=== PATIENT | female | born 1940 | race Caucasian/White ===

== ENCOUNTER 2017-08-10 13:18 | Inpatient (IN) | payer MEDICARE ==
[~2017-08-10] VITALS: Ht 154.9 cm; Wt 61.4 kg
[~2017-08-10 13:18] MED LIST: ATOR20TA9 PO; BACL-19 PO; CITA20TA9 PO; CLOP75TA52 PO; DULO20CA45 PO; GABA-826 PO; NEO/5DRO2 LEFTEYE
[2017-08-10] MEDS ORDERED: SODIUM CHLORIDE FLUSH 10ML SYR IVF ONE ×2 (13:30→16:00)
[2017-08-10] MEDS ORDERED: MECLIZINE CHEWABLE 25 MG TAB PO ONE (13:30)
[2017-08-10] MEDS ORDERED: BACL20TA PO (13:42)
[2017-08-10] MEDS ORDERED: ASCO10004 PO (13:42)
[2017-08-10] MEDS ORDERED: CHOL100012 PO (13:42)
[2017-08-10] MEDS ORDERED: SENN-87 PO (13:42)
[2017-08-10] MEDS ORDERED: OMEG-14 PO (13:42)
[2017-08-10] MEDS ORDERED: GABA300C10 PO (13:42)
[2017-08-10] MEDS ORDERED: ONDA4TAB7 PO (13:42)
[2017-08-10] MEDS ORDERED: ACET325T26 PO (13:42)
[2017-08-10] MEDS ORDERED: MULT-658 PO (13:42)
[2017-08-10] MEDS ORDERED: MECLIZINE CHEWABLE 25 MG TAB ONE (13:50)
[2017-08-10 14:00] LABS: HEMATOCRIT 42.6 % (34.6-47.8); HEMOGLOBIN 14.5 g/dL (11.7-16.4); WHITE BLOOD COUNT 6.3 x10^3/uL (3.4-10)
[2017-08-10 14:06] LABS: ASPARTATE AMINO TRANSFERASE 18 U/L (15-37); BLOOD UREA NITROGEN 12 mg/dL (7-18)
[2017-08-10 14:11] LABS: IS PT STATUS REG ER OR PRE ER? YES
[2017-08-10] MEDS ORDERED: ONDANSETRON 4 MG TABLET PO PRN (17:00)
[2017-08-10] MEDS ORDERED: LORazepam 0.5MG TABLET PO PRN (17:30)
[2017-08-10] MEDS ORDERED: HYDROcodone/APAP 5/325 TABLET PO PRN (17:30)
[2017-08-10] MEDS: METHOCARBAMOL 500 MG TABLET PO SCH ×3 (17:30→22:22)
[2017-08-10] MEDS ORDERED: POLYETHYLENE GLYCOL 17 GM PACKET PO PRN (17:30)
[2017-08-10] MEDS ORDERED: BISACODYL 10 MG SUPP PR PRN (17:30)
[2017-08-10] MEDS ORDERED: KETOROLAC 30 MG/1 ML IVPush ONE (17:30)
[2017-08-10] MEDS ORDERED: ONDANSETRON 2MG/ML, 2ML IVPush PRN (17:30)
[2017-08-10] MEDS ORDERED: MECLIZINE 12.5 MG TABLET PO PRN (17:30)
[2017-08-10] MEDS ORDERED: morphine SULFATE 10 MG/ML, 1ML IVPush PRN (17:30)
[2017-08-10] MEDS ORDERED: GADOBUTROL 7.5 MMOL/7.5 ML PFS ONE (18:31)
[2017-08-10 20:00] LABS: IS PT STATUS REG ER OR PRE ER? NO
[2017-08-10] MEDS: ACETAMINOPHEN 325 MG TABLET PO SCH ×3 (21:00→22:22)
[2017-08-10] MEDS: SENNOSIDES 8.6 MG TABLET PO SCH (21:00)
[2017-08-10] MEDS ORDERED: DULOXETINE 20 MG CAPSULE.DR PO SCH (21:00)
[2017-08-10 22:00] VITALS: BP_SYST 109; BP_SYST 114; BP_SYST 127; BP_DIAS 66; BP_DIAS 74; BP_DIAS 78
[2017-08-10] MEDS: SODIUM CHLORIDE 0.9% 1,000 ML IV SCH (22:07)
[2017-08-10] MEDS: ENOXAPARIN 40 MG/0.4 ML SQ SCH (22:08)
[2017-08-10] MEDS: ATORVASTATIN 20 MG TABLET PO SCH (22:09)
[2017-08-11 00:58] VITALS: BP 112/69
[2017-08-11] MEDS: ACETAMINOPHEN 325 MG TABLET PO SCH ×6 (01:01→20:46)
[2017-08-11 05:58] LABS: HEMATOCRIT 39.3 % (34.6-47.8); HEMOGLOBIN 13.4 g/dL (11.7-16.4); WHITE BLOOD COUNT 5.4 x10^3/uL (3.4-10)
[2017-08-11] MEDS: METHOCARBAMOL 500 MG TABLET PO SCH ×4 (06:11→20:46)
[2017-08-11 06:37] LABS: BLOOD UREA NITROGEN 17 mg/dL (7-18)
[2017-08-11 07:13] VITALS: BP 129/71
[2017-08-11 07:14] VITALS: BP 148/84
[2017-08-11 07:23] VITALS: BP 131/83
[2017-08-11] MEDS: SENNOSIDES 8.6 MG TABLET PO SCH ×2 (09:00→20:45)
[2017-08-11] MEDS: MULTIVITAMIN 1 TABLET PO SCH (09:23)
[2017-08-11] MEDS: CLOPIDOGREL 75 MG TABLET PO SCH (09:23)
[2017-08-11] MEDS: SODIUM CHLORIDE 0.9% 1,000 ML IV SCH ×2 (09:23→18:00)
[2017-08-11] MEDS: OMEGA-3/FISH OIL CAPSULE PO SCH (09:23)
[2017-08-11] MEDS: GABAPENTIN 300 MG CAPSULE PO SCH (09:23)
[2017-08-11] MEDS: CHOLECALCIFEROL 1,000 UNIT TABLET PO SCH (09:23)
[2017-08-11] MEDS ORDERED: ASPIRIN 325 MG TABLET PO ONE (09:30)
[2017-08-11 11:06] LABS: IS PT STATUS REG ER OR PRE ER? NO
[2017-08-11 14:00] VITALS: BP_SYST 104; BP_SYST 112; BP_SYST 114; BP_DIAS 66; BP_DIAS 70
[2017-08-11] MEDS ORDERED: NITROGLYCERIN 0.4 MG/SPRAY SL PRN (16:00)
[2017-08-11] MEDS: MECLIZINE 12.5 MG TABLET PO SCH ×2 (16:00→20:44)
[2017-08-11] MEDS ORDERED: NITROGLYCERIN 0.4 MG BOTTLE (25 TABS) SL PRN (16:00)
[2017-08-11 18:55] LABS: IS PT STATUS REG ER OR PRE ER? NO
[2017-08-11] MEDS: FAMOTIDINE 20 MG TABLET PO SCH (20:44)
[2017-08-11] MEDS: ATORVASTATIN 20 MG TABLET PO SCH (20:45)
[2017-08-11] MEDS: DULOXETINE 20 MG CAPSULE.DR PO SCH (20:45)
[2017-08-11] MEDS: ENOXAPARIN 40 MG/0.4 ML SQ SCH (20:46)
[2017-08-11 21:08] VITALS: BP 118/75
[2017-08-12] MEDS: SODIUM CHLORIDE 0.9% 1,000 ML IV SCH ×2 (00:35→17:33)
[2017-08-12] MEDS: ACETAMINOPHEN 325 MG TABLET PO SCH ×6 (01:00→21:00)
[2017-08-12] MEDS ORDERED: HALOPERIDOL 5 MG/ML ONE ×2 (02:48→03:48)
[2017-08-12] MEDS ORDERED: HALOPERIDOL 5 MG/ML IV ONE (05:00)
[2017-08-12] MEDS: ASPIRIN 81 MG TABLET EC PO SCH (05:38)
[2017-08-12] MEDS: METHOCARBAMOL 500 MG TABLET PO SCH ×4 (05:38→23:13)
[2017-08-12] MEDS ORDERED: OXYMETAZOLINE NASAL SPRAY 0.05%, 15ML NAS ONE (06:30)
[2017-08-12] MEDS: GABAPENTIN 300 MG CAPSULE PO SCH (08:01)
[2017-08-12] MEDS: OMEGA-3/FISH OIL CAPSULE PO SCH (08:01)
[2017-08-12] MEDS: MECLIZINE 12.5 MG TABLET PO SCH (08:01)
[2017-08-12] MEDS: MULTIVITAMIN 1 TABLET PO SCH (08:01)
[2017-08-12] MEDS: CLOPIDOGREL 75 MG TABLET PO SCH (08:02)
[2017-08-12] MEDS: CHOLECALCIFEROL 1,000 UNIT TABLET PO SCH (08:02)
[2017-08-12 08:49] VITALS: BP 130/75
[2017-08-12] MEDS: SENNOSIDES 8.6 MG TABLET PO SCH ×2 (09:00→21:00)
[2017-08-12] MEDS ORDERED: MECLIZINE 12.5 MG TABLET PO PRN (12:30)
[2017-08-12 13:53] VITALS: BP 164/84
[2017-08-12 20:00] VITALS: BP 137/76
[2017-08-12] MEDS: FAMOTIDINE 20 MG TABLET PO SCH (23:13)
[2017-08-12] MEDS: ATORVASTATIN 20 MG TABLET PO SCH (23:13)
[2017-08-12] MEDS: DULOXETINE 20 MG CAPSULE.DR PO SCH (23:13)
[2017-08-12] MEDS: ENOXAPARIN 40 MG/0.4 ML SQ SCH (23:14)
[2017-08-13] MEDS: ACETAMINOPHEN 325 MG TABLET PO SCH ×2 (01:00→05:00)
[2017-08-13 02:00] VITALS: BP 116/72
[2017-08-13] MEDS: METHOCARBAMOL 500 MG TABLET PO SCH ×4 (07:00→19:14)
[2017-08-13 07:35] VITALS: BP 122/69
[2017-08-13] MEDS ORDERED: REGADENOSON 0.4 MG/5 ML SYRINGE ONE (08:36)
[2017-08-13] MEDS ORDERED: ACETAMINOPHEN 325 MG TABLET PO PRN ×2 (09:00→18:30)
[2017-08-13] MEDS: SENNOSIDES 8.6 MG TABLET PO SCH ×2 (09:00→21:00)
[2017-08-13] MEDS: SODIUM CHLORIDE 0.9% 1,000 ML IV SCH ×2 (11:06→21:11)
[2017-08-13] MEDS: CLOPIDOGREL 75 MG TABLET PO SCH (11:06)
[2017-08-13] MEDS: GABAPENTIN 300 MG CAPSULE PO SCH (11:06)
[2017-08-13] MEDS: ASPIRIN 81 MG TABLET EC PO SCH (11:06)
[2017-08-13] MEDS: OMEGA-3/FISH OIL CAPSULE PO SCH (11:06)
[2017-08-13] MEDS: MULTIVITAMIN 1 TABLET PO SCH (11:06)
[2017-08-13] MEDS: CHOLECALCIFEROL 1,000 UNIT TABLET PO SCH (11:07)
[2017-08-13 15:03] VITALS: BP 132/75
[2017-08-13] MEDS ORDERED: BISACODYL 10 MG SUPP PR PRN (18:30)
[2017-08-13] MEDS ORDERED: POLYETHYLENE GLYCOL 17 GM PACKET PO PRN (18:30)
[2017-08-13] MEDS ORDERED: NITROGLYCERIN 0.4 MG/SPRAY SL PRN (18:30)
[2017-08-13] MEDS ORDERED: ONDANSETRON 2MG/ML, 2ML IVPush PRN (18:30)
[2017-08-13] MEDS ORDERED: NITROGLYCERIN 0.4 MG BOTTLE (25 TABS) SL PRN (18:30)
[2017-08-13 19:14] VITALS: BP 119/74
[2017-08-13] MEDS: FAMOTIDINE 20 MG TABLET PO SCH (21:11)
[2017-08-13] MEDS: ATORVASTATIN 20 MG TABLET PO SCH (21:11)
[2017-08-13] MEDS: DULOXETINE 20 MG CAPSULE.DR PO SCH (21:11)
[2017-08-13] MEDS: ENOXAPARIN 40 MG/0.4 ML SQ SCH (22:09)
[2017-08-14 01:43] VITALS: BP 157/81
[2017-08-14] MEDS: ASPIRIN 81 MG TABLET EC PO SCH (05:44)
[2017-08-14] MEDS: METHOCARBAMOL 500 MG TABLET PO SCH ×4 (05:44→20:06)
[2017-08-14] MEDS: SODIUM CHLORIDE 0.9% 1,000 ML IV SCH (05:47)
[2017-08-14 08:00] VITALS: BP 149/81
[2017-08-14] MEDS: SENNOSIDES 8.6 MG TABLET PO SCH ×2 (09:00→20:07)
[2017-08-14] MEDS: OMEGA-3/FISH OIL CAPSULE PO SCH (10:25)
[2017-08-14] MEDS: GABAPENTIN 300 MG CAPSULE PO SCH (10:25)
[2017-08-14] MEDS: CHOLECALCIFEROL 1,000 UNIT TABLET PO SCH (10:25)
[2017-08-14] MEDS: CLOPIDOGREL 75 MG TABLET PO SCH (10:25)
[2017-08-14] MEDS: MULTIVITAMIN 1 TABLET PO SCH (10:25)
[2017-08-14 12:52] VITALS: BP 121/69
[2017-08-14] MEDS: FAMOTIDINE 20 MG TABLET PO SCH (20:06)
[2017-08-14] MEDS: ATORVASTATIN 20 MG TABLET PO SCH (20:06)
[2017-08-14] MEDS: DULOXETINE 20 MG CAPSULE.DR PO SCH (20:06)
[2017-08-14] MEDS: ENOXAPARIN 40 MG/0.4 ML SQ SCH (20:06)
[2017-08-14 20:19] VITALS: BP 130/67
[2017-08-15 00:30] VITALS: BP 137/81
[2017-08-15] MEDS: METHOCARBAMOL 500 MG TABLET PO SCH ×2 (05:06→11:01)
[2017-08-15] MEDS: ASPIRIN 81 MG TABLET EC PO SCH (05:06)
[2017-08-15 08:46] VITALS: BP 112/74
[2017-08-15] MEDS: CLOPIDOGREL 75 MG TABLET PO SCH (09:27)
[2017-08-15] MEDS: GABAPENTIN 300 MG CAPSULE PO SCH (09:27)
[2017-08-15] MEDS: CHOLECALCIFEROL 1,000 UNIT TABLET PO SCH (09:27)
[2017-08-15] MEDS: OMEGA-3/FISH OIL CAPSULE PO SCH (09:27)
[2017-08-15] MEDS: MULTIVITAMIN 1 TABLET PO SCH (09:27)
[2017-08-15] MEDS: SENNOSIDES 8.6 MG TABLET PO SCH (09:27)
[2017-08-15 12:38] VITALS: BP 106/70
[2017-08-15] MEDS ORDERED: DULO20CA17 PO (13:07)
[2017-08-15] MEDS ORDERED: FAMO20TA7 PO (13:07)
[2017-08-15] MEDS ORDERED: METH500T7 PO (13:08)
== END 2017-08-15 15:56 | DRG 551 ==
LOC: ED 15:55 → EDIP 15:56 → ED 16:27 → 4EST 18:18 → 4WST 08-12 04:40
PROVIDERS: ADMIT Hospitalist; ATTEND Hospitalist
DX: S16.1XXA Strain of muscle, fascia and tendon at neck level, initial encounter (principal); G93.40 Encephalopathy, unspecified; E86.0 Dehydration; G90.9 Disorder of the autonomic nervous system, unspecified; F03.90 Unspecified dementia, unspecified severity, without behavioral disturbance, psychotic disturbance, mood disturbance, and anxiety; K21.9 Gastro-esophageal reflux disease without esophagitis; G89.29 Other chronic pain; W18.30XA Fall on same level, unspecified, initial encounter; F32.9 Major depressive disorder, single episode, unspecified; I10 Essential (primary) hypertension; E78.5 Hyperlipidemia, unspecified; F17.210 Nicotine dependence, cigarettes, uncomplicated; G47.00 Insomnia, unspecified; R04.0 Epistaxis; Z66 Do not resuscitate; F41.9 Anxiety disorder, unspecified; Z82.3 Family history of stroke; Z82.49 Family history of ischemic heart disease and other diseases of the circulatory system; Z86.73 Personal history of transient ischemic attack (TIA), and cerebral infarction without residual deficits; Z98.42 Cataract extraction status, left eye; Y93.89 Activity, other specified; Y92.89 Other specified places as the place of occurrence of the external cause; Z87.440 Personal history of urinary (tract) infections
CPT/HCPCS: 36415; 70450; 70553; 71010; 78452; 80048; 80053; 80061; 81001; 82140; 82607; 82746; 83735; 84443; 84484; 85025; 85610; 85651; 85730; 87086; 93005; 93017; 93306; 99285; A9585; J1650; J1885; J2785; 92523-GN; A9502; C9898; J1630; J7030

== ENCOUNTER 2018-04-28 17:09 | Emergency (ER) | payer MEDICARE ==
[~2018-04-28 17:09] MED LIST changes: +ACET325T26 PO; +ASCO10004 PO; +BACL20TA PO; +CHOL100012 PO; +DULO20CA17 PO; +FAMO20TA7 PO; +GABA300C10 PO; +METH500T7 PO; +MULT-658 PO; +OMEG-14 PO; +ONDA4TAB7 PO; +SENN-87 PO
[2018-04-28] MEDS ORDERED: SODIUM CHLORIDE FLUSH 10ML SYR IVF ONE (17:30)
[2018-04-28] MEDS ORDERED: BACL20TA PO (17:50)
[2018-04-28] MEDS ORDERED: CITA10TA8 PO (17:50)
[2018-04-28] MEDS ORDERED: ACET325T14 PO (17:50)
[2018-04-28 17:55] LABS: BASOPHILS # (AUTO) 0.02 x10^3/uL (0-0.1); BASOPHILS % (AUTO) 0 % (0-1); EOSINOPHILS # (AUTO) 0.11 x10^3/uL (0-0.4); EOSINOPHILS % (AUTO) 2 % (1-7); LYMPHOCYTES # (AUTO) 1.94 x10^3/uL (1-3.4); LYMPHOCYTES % (AUTO) 31 % (22-44); MD NO; MEAN CORPUSCULAR HEMOGLOBIN 30.7 pg (27.0-34.8); MEAN CORPUSCULAR HGB CONC 33.7 g/dL (32.4-35.8); MEAN CORPUSCULAR VOLUME 91.3 fL (80-100); MEAN PLATELET VOLUME 7.2 fL (7.4-10.4); MONOCYTES # (AUTO) 0.39 x10^3/uL (0.2-0.8); MONOCYTES % (AUTO) 6 % (2-9); NEUTROPHILS # (AUTO) 3.74 x10^3/uL (1.8-6.8); NEUTROPHILS % (AUTO) 60 % (42-75); PLATELET COUNT 180 x10^3/uL (130-400); RED BLOOD COUNT 4.55 x10^6/uL (3.82-5.3); RED CELL DISTRIBUTION WIDTH 13.8 % (9.6-15.2)
[2018-04-28 18:02] LABS: ALANINE AMINOTRANSFERASE 22 U/L (12-78); ALBUMIN 3.4 g/dL (3.4-5.0); ANION GAP 6 mmol/L (5-15); CALCIUM 8.9 mg/dL (8.5-10.1); CHLORIDE 110 mmol/L (98-107); CREATININE 0.78 mg/dL (0.55-1.02)
[2018-04-28 18:04] LABS: ALKALINE PHOSPHATASE 90 U/L (45-117); BILIRUBIN,TOTAL 0.4 mg/dL (0.2-1.0); TOTAL PROTEIN 6.5 g/dL (6.4-8.2)
[2018-04-28 19:03] LABS: MICROSCOPIC NOT IND
[2018-04-28 19:09] VITALS: BP 128/74
[2018-04-28 19:11] LABS: CULTURE INDICATED? NO
== END 2018-04-28 21:11 | disposition home or self-care (01) ==
LOC: ED 20:06
DX: R10.32 Left lower quadrant pain (principal); I10 Essential (primary) hypertension; E78.5 Hyperlipidemia, unspecified; Z88.0 Allergy status to penicillin; Z88.1 Allergy status to other antibiotic agents
CPT/HCPCS: 36415; 71045; 74176; 80053; 81003; 83690; 85025; 93005; 99285

== ENCOUNTER 2018-09-07 10:20 | Emergency (ER) | payer MEDICARE ==
[~2018-09-07] VITALS: Ht 154.9 cm; Wt 65.0 kg
[~2018-09-07 10:20] MED LIST changes: +ACET325T14 PO; +CITA10TA8 PO
[2018-09-07] MEDS ORDERED: L.E.T SOLUTION TP ONE ×2 (10:53→11:00)
[2018-09-07] MEDS ORDERED: LIDOCAINE-MPF 1%, 5ML ONE (12:11)
[2018-09-07 12:30] VITALS: BP 122/68
== END 2018-09-07 13:26 | disposition home or self-care (01) ==
LOC: ED 13:09
DX: S01.81XA Laceration without foreign body of other part of head, initial encounter (principal); M25.512 Pain in left shoulder; M25.552 Pain in left hip; F41.1 Generalized anxiety disorder; I10 Essential (primary) hypertension; E78.5 Hyperlipidemia, unspecified; Z86.73 Personal history of transient ischemic attack (TIA), and cerebral infarction without residual deficits; Z87.891 Personal history of nicotine dependence; Z79.01 Long term (current) use of anticoagulants; W18.30XA Fall on same level, unspecified, initial encounter; Y93.89 Activity, other specified; Y92.009 Unspecified place in unspecified non-institutional (private) residence as the place of occurrence of the external cause; Y99.8 Other external cause status
CPT/HCPCS: 12011; 70450; 71045; 72190; 99284

== ENCOUNTER 2020-04-11 07:40 | Emergency (ER) | payer MEDICARE ==
[~2020-04-11] VITALS: Ht 154.9 cm; Wt 81.8 kg
[~2020-04-11 07:40] MED LIST changes: +ATOR20TA37 PO; -ATOR20TA9 PO; -DULO20CA17 PO; +DULO20CA18 PO; +SENN-190 PO; -SENN-87 PO
--- NOTE | 2020-04-11 07:52 | NUR ---
BIB [facility] AFTER [facility] THIS MORNING TO L SIDE NOW HAS L SHOULDER , L WRIST, L HIP, L KNEE, AND L ANKLE PAIN. PT ALSO HIT HER HEAD. NO HEMATOMA, BLEEDING NOTED TO HEAD. NEURO INTACT. AOX4. GCS 15. PT IS ON BLOOD THINNERS. DENIES FEELING DIZZY/LIGHTHEADED PRIOR TO FALL. DENIES CP/SOB. PT RESTING ON GURNEY. NADN. VSS. MONITORS APPLIED. WARM BLANKETS PROVIDED.
--- NOTE | 2020-04-11 08:24 | NUR ---
PT TO RADIOLOGY AT THIS TIME.
--- NOTE | 2020-04-11 08:56 | NUR ---
REPORT GIVEN TO LALY ORLANDO.
--- NOTE | 2020-04-11 10:54 | NUR ---
REPORT RECEIVED FROM DARION RUFFIN.
[2020-04-11 11:00] VITALS: BP 121/69
--- NOTE | 2020-04-11 11:00 | NUR ---
PT IS NOT ABLE TO WALK. PT USES WHEELCHAIR SINCE NOV 2019 PER PT'S DAUGHTER.
--- NOTE | 2020-04-11 11:07 | NUR ---
EDMD NOTIFIED PT IS NOT ABLE TO WALK. AWAITING DC.
--- NOTE | 2020-04-11 11:50 | NUR ---
pt is not wearing pants. this rn was not able to find her pants. pt's daughter's will bring some pants for pt and it takes about 30-40min. supercharger mechanic notified.
--- NOTE | 2020-04-11 12:42 | NUR ---
Patient given discharge instructions and they have confirmed that they understand the instructions.
== END 2020-04-11 12:43 | disposition home or self-care (01) ==
LOC: ED 10:08
DX: S16.1XXA Strain of muscle, fascia and tendon at neck level, initial encounter (principal); S00.03XA Contusion of scalp, initial encounter; S40.012A Contusion of left shoulder, initial encounter; S50.02XA Contusion of left elbow, initial encounter; S70.02XA Contusion of left hip, initial encounter; S80.02XA Contusion of left knee, initial encounter; S09.90XA Unspecified injury of head, initial encounter; M54.2 Cervicalgia; I10 Essential (primary) hypertension; E78.5 Hyperlipidemia, unspecified; Z86.73 Personal history of transient ischemic attack (TIA), and cerebral infarction without residual deficits; W07.XXXA Fall from chair, initial encounter; Y93.89 Activity, other specified; Y92.009 Unspecified place in unspecified non-institutional (private) residence as the place of occurrence of the external cause; Y99.8 Other external cause status
CPT/HCPCS: 70450; 72125; 99285